=== PATIENT | female | born 1965 | race American Indian/Alaskan Native ===

== ENCOUNTER 2016-12-25 06:18 | Inpatient (IN) | payer OTHER ==
[2016-12-25 06:58] LABS: Basophils % (Auto) 0.7 % (0.0-1.8); Eosinophils % (Auto) 1.9 % (0.0-4.3); Hematocrit 42.6 % (30.3-42.9); Hemoglobin 13.8 gm/dl (10.1-14.3); Mean Corpuscular HGB Conc 32 % (30-34); Mean Corpuscular Hemoglobin 30 pg (28-32); Mean Corpuscular Volume 92 fl (79-97); Platelet Count 172 K/mm3 (140-440); Red Blood Count 4.63 M/mm3 (3.65-5.03); Red Cell Distribution Width 14.8 % (13.2-15.2); White Blood Count 5.8 K/mm3 (4.5-11.0)
[2016-12-25 07:23] LABS: Alanine Aminotransferase 9 units/L (7-56); Albumin 4.3 g/dL (3.9-5); Albumin/Globulin Ratio 1.4 %; Alkaline Phosphatase 73 units/L (35-129); Anion Gap 20 mmol/L; Blood Urea Nitrogen 17 mg/dL (7-17); Calcium 9.3 mg/dL (8.4-10.2); Carbon Dioxide 25 mmol/L (22-30); Chloride 103.9 mmol/L (98-107); Creatine Kinase 170 units/L (30-135); Glucose 95 mg/dL (65-100); Potassium 3.8 mmol/L (3.6-5.0); Sodium 145 mmol/L (137-145); Total Protein 7.3 g/dL (6.3-8.2)
[2016-12-25] MEDS ORDERED: MORPHINE IV ONE (10:43)
--- NOTE | 2016-12-25 10:46 | Emergency Department Report ---
HPI - General Chief Complaint: Chest Pain Time Seen by Provider: 12/25/16 10:34 - HPI HPI: This is a 51-year-old -[place] female who presents the emergency department, driven in by her son, with complaint of chest pain that started acutely this morning at about 5:45 AM. The patient says she sat down but the pain worsened so she came in to be seen. The pain is constantly a dull ache but when she sits up straight it produces a very sharp, more intense, pain that radiates towards her right arm. The pain also worsens with respirations. She denies any shortness of breath, nausea, vomiting, diaphoresis but does admit to some lower extremity swelling. She has a history of remote left breast cancer with a previous lumpectomy and chemotherapy, and current hypertension. She is on lisinopril and hydrochlorothiazide and has been compliant but has not taken it today. No recent travel or sick contacts at home. She says she has not had a stress test since about 2009. ED Past Medical Hx - Past Medical History Hx Hypertension: Yes Hx of Cancer: Yes (LT breast) - Surgical History Hx Breast Surgery: Yes (lumpectomy) Additional Surgical History: CHEMO 2009 - Social History Smoking Status: Never Smoker Substance Use Type: Alcohol - Medications Home Medications: Home Medications Medication Instructions Recorded Confirmed Last Taken Type Lisinopril/Hydrochlorothiazide 1 tab PO QDAY 05/29/14 12/25/16 12/24/16 History [Zestoretic 10-12.5 mg] Naproxen Sodium [Aleve TAB] 220 mg PO Q8H PRN 12/25/16 12/25/16 12/24/16 History ED Review of Systems ROS: Stated complaint: CHEST PAIN Other details as noted in HPI Comment: All other systems reviewed and negative Constitutional: denies: chills, fever Eyes: denies: eye pain, eye discharge, vision change ENT: denies: ear pain, throat pain Respiratory: denies: cough, shortness of breath, wheezing Cardiovascular: chest pain, edema. denies: palpitations Gastrointestinal: denies: abdominal pain, nausea, diarrhea Genitourinary: denies: urgency, dysuria, discharge Musculoskeletal: denies: back pain, joint swelling, arthralgia Skin: denies: rash, lesions Neurological: denies: headache, weakness, paresthesias Physical Exam - Physical Exam Vital Signs: Vital Signs 12/25/16 06:40 Temperature 98.4 F Pulse Rate 82 Respiratory 20 Rate Blood Pressure 215/128 [Right] O2 Sat by Pulse 100 Oximetry Physical Exam: GENERAL: The patient is well-developed well-nourished. Patient appears uncomfortable and is bending over as that helps with her discomfort. HEENT: Normocephalic. Atraumatic. Extraocular motions are intact. Patient has moist mucous membranes. NECK: Supple. Trachea is midline. CHEST/LUNGS: Clear to auscultation. There is no respiratory distress noted. Chest pain is not reproducible to palpation of chest wall. HEART/CARDIOVASCULAR: Regular. There is no tachycardia. There is no gallop rub or murmur. ABDOMEN: Abdomen is soft, nontender. Patient has normal bowel sounds. There is no abdominal distention. Obese habitus. SKIN: Skin is warm and dry. There is some mild pitting edema to the bilateral lower extremities. NEURO: The patient is awake, alert, and oriented. The patient is cooperative. The patient has no focal neurologic deficits. The patient has normal speech. MUSCULOSKELETAL: There is no tenderness or deformity. There is no limitation range of motion. There is no evidence of acute injury. ED Course Vital Signs 12/25/16 06:40 Temperature 98.4 F Pulse Rate 82 Respiratory 20 Rate Blood Pressure 215/128 [Right] O2 Sat by Pulse 100 Oximetry ED Medical Decision Making - Lab Data Result diagrams: 12/25/16 06:45 12/25/16 06:45 - EKG Data -: EKG Interpreted by Me EKG shows normal: sinus rhythm, axis, intervals, QRS complexes, ST-T waves Rate: normal - EKG Data When compared to previous EKG there are: previous EKG unavailable Interpretation: normal EKG - Radiology Data Radiology results: report reviewed, image reviewed interpreted by me: Chest x-ray did not show any acute process. Heart is normal shape and size. No effusions. No pneumothorax. No signs of pneumonia seen. CT angiography of the chest does not show any pulmonary embolism or any acute process. - Medical Decision Making 51-year-old female presents to the emergency department with acute chest pain with some radiation to the right arm that occurred about 5:45 AM this morning. So far the patient has had negative troponins 2, a normal-appearing chest x- ray and a CT angiography that does not show any pulmonary wasn't. EKG does not show any signs of ST elevation IL. However the patient still has some discomfort and has not had a full cardiac workup in over 7 years. She also presented with hypertensive urgency that came down with some pain control. She will be admitted to hospital for further evaluation and treatment and has been accepted for admission by the hospitalist, dr rincon. - Differential Diagnosis IL, PE, costochondritis, GERD Critical Care Time: No Critical care attestation.: If time is entered above; I have spent that time in minutes in the direct care of this critically ill patient, excluding procedure time. ED Disposition Clinical Impression: Hypertensive urgency Chest pain Qualifiers: Chest pain type: unspecified Qualified Code(s): R07.9 - Chest pain, unspecified Disposition: OP ADMITTED IP TO THIS HOSP Is pt being admited?: Yes Condition: Stable Instructions: Chest Pain (ED) Time of Disposition: 13:38
[2016-12-25 12:09] LABS: Bilirubin,Urine NEG (Negative); Blood,Urine NEG (Negative); Ketones,Urine NEG (Negative); Leukocyte Esterase,Urine NEG (Negative); Mucus,Urine FEW /HPF; Nitrite,Urine NEG (Negative); Protein,Urine <15 mg/dL mg/dL (Negative); Urobilinogen,Urine < 2.0 mg/dL (<2.0)
[2016-12-25] MEDS ORDERED: NACL ONE (12:14)
[2016-12-25] MEDS ORDERED: BABY ASPIRIN PO ONE (12:57)
--- NOTE | 2016-12-25 13:05 | Admit Criteria Form ---
Admission Criteria Documentation: CHEST PAIN Clinical Indications for Admission to Inpatient Care (Place 'X' for any and all applicable criteria): Admission is indicated for chest pain and ANY ONE of the following(1)(2)(3)(4)(5 ): [ ]I. Angina with acute coronary syndrome (Also use Myocardial Infarction or Angina guideline) [ ]II. Hemodynamic instability [ ]III. Angina needing acute intervention as indicated by ALL of the following( 11)(12): [ ]a) Unstable angina is present as indicated by angina that is ANY ONE of the following: [ ]i) New onset [ ]ii) Nocturnal [ ]iii) Prolonged at rest [ ]iv) Progressive [ ]b) Angina warrants acute intervention as indicated by ANY ONE of the following: [ ]i) Recurrent angina (e.g, not responding as previously to treatment) [ ]ii) Angina at rest or with low-level activities despite initial medical therapy [ ]iii) New or presumably new ST-segment depression on ECG [ ]iv) Signs or symptoms of heart failure (eg, dyspnea, pulmonary edema) [ ]v) New or worsening mitral regurgitation [ ]vi) Hemodynamic instability [ ]vii) Dangerous arrhythmia (eg, sustained ventricular tachycardia) [ ]viii) History of percutaneous coronary intervention within 6 months [ ]ix) History of coronary artery bypass graft surgery [ ]x) SANDRA risk score of 2 or greater[A] [ ]xi) History of Diabetes(14) [ ]xii) High-risk cardiac ischemia findings on noninvasive testing (e.g, echocardiogram, treadmill testing, nuclear scan) [ ]xiii) Chronic renal insufficiency (ie, estimated GFR less than 60 mL/min/1.732m) [ ]xiv) Left ventricular ejection fraction less than 40% [ ]IV. Evidence of VA (eg, cardiac biomarkers positive, ST-segment elevation on ECG) also use Myocardial Infarction Criteria Form. [ ]V. Pulmonary edema [ ]. Respiratory distress [ ]VII. Chest pain indicative of serious diagnosis other than coronary artery disease (eg, aortic dissection) [ ]VIII. Contraindications and/or Inappropriate clinical situations for Observational Care in patients with Chest Pain, when ANY ONE of the following is required: [ ]a) Patient with risk factor for pulmonary embolism, acute coronary syndrome and myocardial infarction (18) [ ]b) Patient with Pulmonary embolism require an average LOS of 4.3 days, therefore emergency department observation management is inappropriate 18,23 [ ]c) Painful condition/s in the elderly, have the highest rate of recidivism after emergency department observation management (10.8%) 20,21,22 [ ]d) Elevated cardiac biomarker requires intensive and exhaustive care (19) [X]IX. General contraindications and/or Inappropriate clinical situations for Observational Care in patients with Chest Pain, when ANY ONE of the following is required: [ ]a) Prediction of prolongation of LOS based on ANY ONE of the following may be considered as a contraindication for observational care 2, 3, 4, 5, 6, 7, 8, 9, 10, 11 [ ]i) Age > 65 yrs. [ ]ii) Patient arriving by ambulance [ ]iii) Patient with high acuity [ ]iv) Patient requiring vital sign monitoring [ ]v) Patient on IV medication [X]b) Systolic blood pressures 180mmHg 3,12 [ ]c) Patient with altered mental status including delirium and other alteration of consciousness, (3) [ ]d) Patient whose discharge disposition will be to a long-term home or rehabilitation home should not be managed in Emergency Department Observation Unit. CMS rule requires 3 days hospital stay before such placement. 3,13 [ ]e) Patient with failure to thrive due to broad array of etiologies 3,16,17 [ ]f) Inability to ambulate 3,14 Extended stay beyond goal length of stay may be needed for (1)(28): [ ]a) Specific condition diagnosed after evaluation (eg, pulmonary embolism, aortic dissection) [ ]b) Unstable angina [ ]c) Continued suspicion of acute coronary syndrome with inability to complete needed cardiac evaluation (eg, patient clinically unable to undergo stress testing) [ ]d) Myocardial infarction (Contents from ANGINA and CHEST PAIN clinical indications for admission to inpatient care have been integrated in this form) The original [facility] content created by [employer] has been revised. The portions of the content which have been revised are identified through the use of italic text or in bold, and [email or web address] has neither reviewed nor approved the modified material. All other unmodified content is copyright [facility] Please see references footnoted in the original [facility] edition 2016 Admission Criteria Met: Yes
--- NOTE | 2016-12-25 13:10 | Cat Scan Report ---
CTA chest: History: Chest pain, elevated d-dimer. Findings: No evidence of aortic aneurysm. No evidence of pulmonary embolism. No pleural or pericardial effusion. No mediastinal mass or adenopathy. Normal lung parenchyma. No discrete nodularity or consolidation. Impression: No evidence of pulmonary embolism. No acute lung changes.
--- NOTE | 2016-12-25 13:19 | XRay Report ---
AP CHEST: HISTORY: chest pain AP view of the chest demonstrates a normal mediastinal and cardiac contour with clear lungs and normal bony and soft tissue structures. IMPRESSION: Unremarkable AP chest.
[2016-12-25] MEDS ORDERED: SODIUM CHLORIDE FLUSH SYRINGE 10 ML IV PRN (13:24)
[2016-12-25] MEDS ORDERED: MORPHINE IV PRN (13:24)
[2016-12-25] MEDS ORDERED: BABY ASPIRIN ONE (13:55)
--- NOTE | 2016-12-25 14:01 | History and Physical Report ---
History of Present Illness Date of examination: 12/25/16 Chief complaint: chest pain History of present illness: 51-year-old -[place]ish female with medical history significant for breast cancer survivor, hypertension, arthritis presented to the emergency department of mediastinal chest pain that started this morning around 5:45 AM. She states her pain is sharp, 9 out of 10, with no radiation, pain is getting worse when the patient is sitting and standing, pain gets better when the patient is leaning forward. Patient denied shortness of breath, palpitation, PND, fever, chairs, nausea, vomiting. Denied any recent upper respiratory tract infection. Patient has been taking her medications as ordered. REVIEW OF SYSTEMS: GENERAL: no weight change, no fatigue, no fever HEAD: no head ache EYES: no blurry vision, no acute visual loss EARS: no hearing loss, no discharge, no earache NOSE: no stuffiness, no sneezing, no discharge MOUTH, THROAT AND NECK: no bleeding gums, no sore throat, no swollen neck CARDIAC: no palpitations, no dyspnea on exertion, no orthopnea, no PND, no edema , + chest pain RESPIRATORY: no shortness of breath, no wheeze, no cough, no sputum, no hemoptysis, no asthma GI: no decreased appetite, no nausea, no vomiting, no dysphagia, no diarrhea, no constipation, no abdominal pain URINARY: no change in frequency, no urgency, no polyuria, no hematuria, no incontinence MUSCULOSKELETAL: no muscle weakness, no pain, no joint stiffness NEUROLOGIC: no loss of sensation/numbness, no tingling, no tremors, no weakness/ paralysis HEMATOLOGIC: no anemia, no easy bruising SKIN: no rashes ENDOCRINE: no heat/cold intolerance, no polyuria, no polydipsia, no thyroid problems, no diabetes PSYCHIATRIC: no anxiety, no depression, no suicidal ideations Past History Past Medical History: arthritis, cancer, hypertension Past Surgical History: cholecystectomy, hysterectomy, total knee replacement, tonsillectomy, Other (breast lumpectomy) Social history: full code. denies: smoking, alcohol abuse, prescription drug abuse, IV drug use Family history: no significant family history Medications and Allergies Allergies Allergy/AdvReac Type Severity Reaction Status Date / Time No Known Allergies Allergy Unverified 05/29/14 22:27 Home Medications Medication Instructions Recorded Confirmed Last Taken Type Lisinopril/Hydrochlorothiazide 1 tab PO QDAY 10/25/14 05/23/17 05/22/17 History [Zestoretic 10-12.5 mg] Naproxen Sodium [Aleve TAB] 220 mg PO Q8H PRN 12/25/16 12/25/16 12/24/16 History Active Meds: Active Medications Aspirin (Baby Aspirin) 81 mg PO QDAY MELIZA Docusate Sodium (Colace) 100 mg PO BID MELIZA Enoxaparin Sodium (Lovenox) 40 mg SUB-Q QDAY MELIZA Famotidine (Pepcid) 20 mg PO BID MELIZA Hydrochlorothiazide (Hctz) 25 mg PO QDAY MELIZA Lisinopril (Zestril) 20 mg PO QDAY MELIZA Morphine Sulfate (Morphine) 2 mg IV Q4H PRN PRN Reason: Chest Pain Sodium Chloride (Sodium Chloride Flush Syringe 10 Ml) 10 ml IV PRN PRN PRN Reason: LINE FLUSH Exam - Physical Exam Narrative exam: Not in cardiopulmonary distress. The patient is obese. Vital signs as documented. Head exam is unremarkable. No scleral icterus . Neck is without jugular venous distension, thyromegaly, or carotid bruits. Lungs are clear to auscultation. Cardiac exam reveals regular rate and Rhythm. First and second heart sounds normal. No murmurs, rubs or gallops. Abdominal exam reveals normal bowel sounds, no masses, no organomegaly and no aortic enlargement. Extremities are nonedematous and both femoral and pedal pulses are normal. [employer]: Alert and oriented 3. No focal weakness. - Constitutional Vitals: Temp Pulse Resp BP Pulse Ox 98.9 F 60 22 162/86 95 12/25/16 10:40 12/25/16 10:40 12/25/16 10:40 12/25/16 10:40 12/25/16 10:40 Results - Labs CBC & Chem 7: 12/25/16 06:45 12/25/16 06:45 Labs: Laboratory Last Values WBC 5.8 K/mm3 (4.5-11.0) 12/25/16 06:45 RBC 4.63 M/mm3 (3.65-5.03) 12/25/16 06:45 Hgb 13.8 gm/dl (10.1-14.3) 12/25/16 06:45 Hct 42.6 % (30.3-42.9) 12/25/16 06:45 MCV 92 fl (79-97) 12/25/16 06:45 MCH 30 pg (28-32) 12/25/16 06:45 MCHC 32 % (30-34) 12/25/16 06:45 RDW 14.8 % (13.2-15.2) 12/25/16 06:45 Plt Count 172 K/mm3 (140-440) 12/25/16 06:45 Lymph % (Auto) 27.4 % (13.4-35.0) 12/25/16 06:45 [place] % (Auto) 5.5 % (0.0-7.3) 12/25/16 06:45 Eos % (Auto) 1.9 % (0.0-4.3) 12/25/16 06:45 Baso % (Auto) 0.7 % (0.0-1.8) 12/25/16 06:45 Lymph # 1.6 K/mm3 (1.2-5.4) 12/25/16 06:45 [place] # 0.3 K/mm3 (0.0-0.8) 12/25/16 06:45 Eos # 0.1 K/mm3 (0.0-0.4) 12/25/16 06:45 Baso # 0.0 K/mm3 (0.0-0.1) 12/25/16 06:45 Seg Neutrophils % 64.5 % (40.0-70.0) 12/25/16 06:45 Seg Neutrophils # 3.7 K/mm3 (1.8-7.7) 12/25/16 06:45 D-Dimer 255.40 ng/mlDDU (0-234) H 12/25/16 11:24 Sodium 145 mmol/L (137-145) 12/25/16 06:45 Potassium 3.8 mmol/L (3.6-5.0) 12/25/16 06:45 Chloride 103.9 mmol/L (98-107) 12/25/16 06:45 Carbon Dioxide 25 mmol/L (22-30) 12/25/16 06:45 Anion Gap 20 mmol/L 12/25/16 06:45 BUN 17 mg/dL (7-17) 12/25/16 06:45 Creatinine 1.0 mg/dL (0.7-1.2) 12/25/16 06:45 Estimated GFR > 60 ml/min 12/25/16 06:45 BUN/Creatinine Ratio 17.00 % 12/25/16 06:45 Glucose 95 mg/dL (65-100) 12/25/16 06:45 Calcium 9.3 mg/dL (8.4-10.2) 12/25/16 06:45 Total Bilirubin 0.40 mg/dL (0.1-1.2) 12/25/16 06:45 AST 15 units/L (5-40) 12/25/16 06:45 ALT 9 units/L (7-56) 12/25/16 06:45 Alkaline Phosphatase 73 units/L (35-129) 12/25/16 06:45 Total Creatine Kinase 170 units/L (30-135) H 12/25/16 06:45 CK-MB (CK-2) 2.0 ng/mL (0.0-4.0) 12/25/16 06:45 CK-MB (CK-2) Rel Index 1.1 (0-4) 12/25/16 06:45 Troponin T < 0.010 ng/mL (0.00-0.029) 12/25/16 11:24 NT-Pro-B Natriuret Pep 96.24 pg/mL (0-900) 12/25/16 11:24 Total Protein 7.3 g/dL (6.3-8.2) 12/25/16 06:45 Albumin 4.3 g/dL (3.9-5) 12/25/16 06:45 Albumin/Globulin Ratio 1.4 % 12/25/16 06:45 Urine Color Yellow (Yellow) 12/25/16 11:45 Urine Turbidity Clear (Clear) 12/25/16 11:45 Urine pH 6.0 (5.0-7.0) 12/25/16 11:45 Ur Specific [place] 1.017 (1.003-1.030) 12/25/16 11:45 Urine Protein <15 mg/dl mg/dL (Negative) 12/25/16 11:45 Urine Glucose (UA) Neg mg/dL (Negative) 12/25/16 11:45 Urine Ketones Neg mg/dL (Negative) 12/25/16 11:45 Urine Blood Neg (Negative) 12/25/16 11:45 Urine Nitrite Neg (Negative) 12/25/16 11:45 Urine Bilirubin Neg (Negative) 12/25/16 11:45 Urine Urobilinogen < 2.0 mg/dL (<2.0) 12/25/16 11:45 Ur Leukocyte Esterase Neg (Negative) 12/25/16 11:45 Urine WBC (Auto) 1.0 /HPF (0.0-6.0) 12/25/16 11:45 Urine RBC (Auto) 1.0 /HPF (0.0-6.0) 12/25/16 11:45 U Epithel Cells (Auto) < 1.0 /HPF (0-13.0) 12/25/16 11:45 Urine Mucus Few /HPF 12/25/16 11:45 Assessment and Plan Assessment and plan: Chest pain - Patient symptoms looks like pericarditis but EKG doesn't go visit - We'll do echo - Serial cardiac enzymes, serial EKGs and stress test tomorrow morning Hypertension - Uncontrolled - We will increase the dose of home medication - We'll monitor History of breast cancer - She have no symptoms currently Prophylaxis - Lovenox Disposition - To telemetry Advance Directives: Yes VTE prophylaxis?: Chemical Plan of care discussed with patient/family: Yes
[2016-12-25] MEDS: HCTZ PO SCH (14:49)
[2016-12-25] MEDS: ZESTRIL PO SCH (14:50)
[2016-12-25 17:33] LABS: Creatine Kinase MB 1.5 ng/mL (0.0-4.0)
[2016-12-25 17:35] LABS: Creatine Kinase 129 units/L (30-135)
[2016-12-25 20:17] LABS: Creatine Kinase MB 1.5 ng/mL (0.0-4.0)
[2016-12-25 20:20] LABS: Creatine Kinase 134 units/L (30-135)
[2016-12-25] MEDS: PEPCID PO SCH (22:25)
[2016-12-25] MEDS: COLACE PO SCH (22:25)
[2016-12-26 05:20] LABS: Anion Gap 17 mmol/L; Blood Urea Nitrogen 17 mg/dL (7-17); Calcium 8.9 mg/dL (8.4-10.2); Carbon Dioxide 27 mmol/L (22-30); Chloride 101.2 mmol/L (98-107); Glucose 88 mg/dL (65-100); Potassium 4.3 mmol/L (3.6-5.0); Sodium 141 mmol/L (137-145)
[2016-12-26] MEDS ORDERED: LEXISCAN IV ONE ×2 (09:59→10:01)
[2016-12-26] MEDS ORDERED: BABY ASPIRIN PO SCH (10:00)
[2016-12-26] MEDS ORDERED: LOVENOX SUB-Q SCH (10:00)
[2016-12-26] MEDS: ZESTRIL PO SCH (11:51)
[2016-12-26] MEDS: PEPCID PO SCH (11:51)
[2016-12-26] MEDS: HCTZ PO SCH (11:53)
[2016-12-26 11:54] VITALS: BP 141/81
[2016-12-26] MEDS: COLACE PO SCH (11:54)
--- NOTE | 2016-12-26 11:58 | Discharge Summary ---
Providers - Providers Date of Admission: 12/25/16 13:23 Date of discharge: 12/26/16 Attending physician: SUSAN GUZMAN 12/25/16 Consult to Cardiac Rehabilitation [CONS] Routine Reason For Exam: Phase I Primary care physician: DANE MCCULLOUGH MD Hospitalization Condition: Stable Hospital course: Patient is a 51-year-old woman with history of left breast cancer, hypertension presents with chest pain. She underwent thorough cardiac evaluation including negative cardiac enzymes, troponin. 1. Left-sided chest pain most likely muscle skeletal costochondritis 2. Accelerated hypertension, resolved 3. Elevated d-dimer with negative CTA of the chest for PE or acute findings Patient will be discharged stress test negative Disposition: DISCHARGED TO HOME OR SELFCARE Time spent for discharge: 33 minutes Core Measure Documentation - Palliative Care Palliative Care/ Comfort Measures: Not Applicable - Core Measures Any of the following diagnoses?: none - VTE Discharge Requirements Deep Vein Thrombosis/Pulmonary Embolism Present on Admission: No Has pt received <5 days of overlap therapy or INR<2.0: No Anticoagulant overlap therapy prescribed at discharge: No Contraindication No Overlap Therapy order at DC: Not Indicated Exam - Physical Exam Narrative exam: GEN: WDWN, NAD, AWAKE, ALERT, ORIENTATED 3 HEENT: NCAT, PERRL, EOMI, OP CLEAR NECK: SUPPLE, NO THYROMEGALY, NO JVD, NO LAD CVS: RRR, NORMAL S1S2 LUNGS/CHEST: CTA B, NORMAL CHEST EXPANSION B, GOOD AIR ENTRY B, mild reproducible left-sided chest wall tenderness ABD: SOFT NTND, GBS, NO REBOUND OR GUARDING EXT/SKIN: NO SIGNIFICANT EDEMA OR RASH MSK: FROM X 4 EXTREMITIES NEURO: CN 2-12 GROSSLY INTACT, NO FOCAL DEFICITS PSY: CALM - Constitutional Vitals: Temp Pulse Resp BP Pulse Ox 98.4 F 68 22 141/81 98 12/26/16 05:00 12/26/16 11:51 12/26/16 05:00 12/26/16 11:51 12/26/16 05:00 Plan Activity: advance as tolerated Diet: low salt Additional Instructions: Take [id number] Prilosec with Aleve/naproxen/ ibuprofen or Motrin Follow up with: PRIMARY CARE, [Primary Care Provider] - 3-5 Days
--- NOTE | 2016-12-27 04:46 | Treadmill Report ---
ORDERING PHYSICIAN: . FINDINGS: There is a mild to moderate sized fixed apical wall defect comprising 6% of the left ventricular myocardium. There is mild reversibility noted within this defect. The left ventricle is normal in size and the left ventricular systolic function measured at 58%. Normal wall motion and wall thickening is noted on gated imaging. CONCLUSION: 1. Evidence of a mostly fixed, mild to moderate in size, apical wall defect with mild reversibility. 2. Normal left ventricular size and ejection fraction measured at 58%. 3. This is a low risk myocardial perfusion scan associated with a 1 year mortality of less than 1%. 4. Clinical correlation is recommended. JOB# [id number] MAGGIE/JIGNESH
== END 2016-12-26 15:10 | disposition home or self-care (01) | DRG 206 ==
LOC: ED 06:18 → 4A 13:23
PROVIDERS: ADMIT Internal Medicine; ATTEND Internal Medicine
DX: M94.0 Chondrocostal junction syndrome [Tietze] (principal); I16.0 Hypertensive urgency; I10 Essential (primary) hypertension; M19.90 Unspecified osteoarthritis, unspecified site; Z96.653 Presence of artificial knee joint, bilateral; Z90.49 Acquired absence of other specified parts of digestive tract; Z90.710 Acquired absence of both cervix and uterus; Z85.3 Personal history of malignant neoplasm of breast
CPT/HCPCS: 36415; 71010; 71275; 78452; 80048; 80053; 80061; 81001; 82550; 82553; 83880; 84484; 85025; 85379; 93005; 93010; 93017; 96374; A9502; J1650; J2270; J2785; Q9967